=== PATIENT | male | born 2000 | race Caucasian/White ===

== ENCOUNTER 2025-05-13 08:56 | Emergency (ER) | payer SELFPAY ==
[2025-05-13] MEDS ORDERED: Aspirin Chewable 81 MG TAB ONE (10:11)
[2025-05-13 10:34] LABS: #Basophils 0.03 10x3/uL (0.0-0.2); #Eosinophils 0.10 10x3/uL (0.0-0.5); #Monocytes 0.40 10x3/uL (0.0-1.1); #Neutrophils 2.05 10x3/uL (1.5-8.4); %Basophils 0.8 % (0.0-2.0); %Eosinophils 2.7 % (0.0-6.0); %Lymphocytes 28.8 % (18.0-47.0); %Monocytes 11.0 % (0.0-10.0); %Neutrophils 56.4 % (40.0-75.0); Hematocrit 47.7 % (38.8-50.0); Hemoglobin 16.1 g/dL (13.5-17.5); Mean Corpuscular Hemoglobin 31.1 pg (27.0-33.0); Mean Corpuscular Volume 92.1 fL (81.2-95.1); Platelet Count 191 10x3/uL (150-450); Red Blood Cell (RBC) Count 5.18 10x6/uL (4.32-5.72); White Blood Cell (WBC) Count 3.64 10x3/uL (3.5-10.5)
[2025-05-13 10:49] LABS: ALT (SGPT) 25 U/L (Less than 45); AST (SGOT) 25 U/L (11-34); Albumin 5.0 g/dL (3.1-4.5); Alkaline Phosphatase 61 U/L (40-110); Anion Gap 10 mmol/L (10-20); BUN (Urea Nitrogen) 13 mg/dL (8.9-20.6); Bilirubin, Total 1.3 mg/dL (0.3-1.2); Calc. Creatinine Clearance 0 mL/min (70-130); Calcium 9.2 mg/dL (7.8-10.44); Carbon Dioxide 28 mmol/L (22-29); Chloride 105 mmol/L (98-107); Globulin 2.6 g/dL (2.4-3.5); Glucose 91 mg/dL (70-105); Lipase 21 U/L (8-78); Potassium 4.0 mmol/L (3.5-5.1); Sodium 139 mmol/L (136-145)
[2025-05-13 10:53] LABS: Troponin I Less than 0.010 ng/mL (< 0.028)
[2025-05-13 13:40] LABS: Troponin I Less than 0.010 ng/mL (< 0.028)
== END 2025-05-13 15:53 | disposition home or self-care (01) ==
LOC: CSHERS 08:56
DX: R07.9 Chest pain, unspecified (principal); Z79.82 Long term (current) use of aspirin; Z79.02 Long term (current) use of antithrombotics/antiplatelets
CPT/HCPCS: 36415; 71045; 80053; 83690; 83880; 84484; 85025; 85379; 93005; 93010